=== PATIENT | female | born 1985 | race African-American/Black ===

== ENCOUNTER 2019-01-11 23:01 | Inpatient (IN) | payer MEDICAID | END 2019-01-15 09:40 | disposition home or self-care (01) | LOC: LDRP 23:01 | PROC: 10D00Z1 Extraction of Products of Conception, Low, Open Approach (ICD-10-PCS; principal; 2019-01-12 13:03) | DX: O42.92 Full-term premature rupture of membranes, unspecified as to length of time between rupture and onset of labor (principal); F12.10 Cannabis abuse, uncomplicated; Z37.0 Single live birth; O62.0 Primary inadequate contractions; Z3A.39 39 weeks gestation of pregnancy; F14.10 Cocaine abuse, uncomplicated ==